=== PATIENT | male | born 1960 | race Caucasian/White ===

== ENCOUNTER 2017-05-04 09:53 | Inpatient (IN) ==
[2017-04-29 12:53] LABS: URINE MICRO REVIEW NEEDED? NO; URINE SOURCE CLEAN CATCH
[2017-04-29 12:53] LABS: MANUAL DIFF NEEDED? NO
--- NOTE | 2017-04-29 13:04 | EKG Report ---
Test Performed on : 04/29/2017 12:32:34 PM Test Reason : PAT JOINT CAMP Blood Pressure : / mmHG Vent. Rate : 057 BPM Atrial Rate : 057 BPM P-R Int : 176 ms QRS Dur : 086 ms QT Int : 392 ms P-R-T Axes : 034 054 032 degrees QTc Int : 381 ms Sinus bradycardia. Septal infarct , age undetermined Abnormal ECG No previous ECGs available Confirmed by Cristobal ALCALA, Christos Navarro ([id number]) on 05/01/2017 9:12:56 AM
[2017-04-29 13:32] LABS: BASO% 0.3 % (0.0-0.8); EOS# 0.33 X1000 (0.0-0.7); EOS% 3.5 % (0.0-10.0); HEMATOCRIT 47.8 % (42.0-52.0); HEMOGLOBIN 16.7 g/dL (14.0-18.0); IMM GRAN# 0.04 X1000 (0.0-0.04); IMM GRAN% 0.4 % (0.0-0.5); LYMPH# 2.43 X1000 (1.2-3.4); MCH 30.1 PG (27-31); MCHC 34.9 g/dL (33-37); MCV 86.3 FL (81-99); MONO# 0.56 X1000 (0.11-0.59); NEUT% 63.8 % (42.2-75.2); PLT 306 X1000 (130-400); RBC 5.54 XMIL (4.7-6.1)
[2017-04-29 13:33] LABS: BILIRUBIN URINE NEGATIVE (NEGATIVE); BLOOD URINE NEGATIVE (NEGATIVE); COLOR YELLOW; GLUCOSE URINE NEGATIVE (NEGATIVE); LEUKOCYTES URINE NEGATIVE (NEGATIVE); NITRITE URINE NEGATIVE (NEGATIVE); PROTEIN URINE NEGATIVE (NEGATIVE); SP GRAVITY URINE 1.017; TURBIDITY URINE CLEAR (CLEAR); UROBILINOGEN URINE NORMAL (NORMAL)
[2017-04-29 13:37] LABS: UR EPITHELIAL CELLS <10 /HPF (<10); URINE BACTERIA NEGATIVE /HPF; URINE RBC <10 /HPF (<10); URINE WBC <10 /HPF (<10)
[2017-04-29 13:45] LABS: INR 1.02; PROTIME 10.7 Seconds (9.2-11.7); PTT 26.5 Seconds (22.0-36.0)
[2017-04-29 14:04] LABS: AGAP 11; BUN 16 mg/dL (8-22); CALCIUM 9.4 mg/dL (8.8-10.2); CHLORIDE 98 mmol/L (98-107); COSMO 277; POTASSIUM 4.1 mmol/L (3.5-5.1); SODIUM 138 mmol/L (136-145); TCO2 29 mmol/L (25-35)
[2017-05-04] MEDS ORDERED: COLACE ONE (10:09)
[2017-05-04] MEDS ORDERED: LYRICA ONE ×2 (10:09→10:38)
[2017-05-04] MEDS ORDERED: REGLAN ONE (10:09)
[2017-05-04] MEDS ORDERED: CELEBREX ONE (10:09)
[2017-05-04] MEDS ORDERED: PEPCID ONE (10:09)
[2017-05-04] MEDS ORDERED: LR 1,000 ML ONE ×2 (10:09→14:46)
[2017-05-04] MEDS ORDERED: KEFZOL 2 GM/D5W 2 GM/50 ML IVPB ONE (10:10)
[2017-05-04] MEDS ORDERED: TORADOL ONE (12:07)
[2017-05-04] MEDS ORDERED: MARCAINE 0.25% PF/EPI 1:200,000 ONE (12:07)
[2017-05-04] MEDS ORDERED: NEOSPORIN G.U. IRRIGANT ONE (12:08)
[2017-05-04] MEDS ORDERED: EXPAREL 1.3% ONE (12:08)
[2017-05-04] MEDS ORDERED: CYKLOKAPRON 1,000 MG/NS 1,000 MG/100 ML IVPB ONE ×2 (12:08→12:09)
[2017-05-04] MEDS ORDERED: SODIUM CHLORIDE 0.9% ONE (12:08)
[2017-05-04] MEDS ORDERED: VANCOMYCIN ONE (12:09)
[2017-05-04 13:14] LABS: URINE MICRO REVIEW NEEDED? NO; URINE SOURCE CATH
[2017-05-04 13:20] LABS: BILIRUBIN URINE NEGATIVE (NEGATIVE); BLOOD URINE NEGATIVE (NEGATIVE); COLOR YELLOW; GLUCOSE URINE NEGATIVE (NEGATIVE); LEUKOCYTES URINE NEGATIVE (NEGATIVE); NITRITE URINE NEGATIVE (NEGATIVE); PROTEIN URINE NEGATIVE (NEGATIVE); SP GRAVITY URINE 1.016; TURBIDITY URINE CLEAR (CLEAR); UROBILINOGEN URINE NORMAL (NORMAL)
[2017-05-04 13:22] LABS: UR EPITHELIAL CELLS <10 /HPF (<10); URINE BACTERIA NEGATIVE /HPF; URINE RBC <10 /HPF (<10); URINE WBC <10 /HPF (<10)
[2017-05-04] MEDS ORDERED: NS 1,000 ML ONE (14:32)
[2017-05-04] MEDS ORDERED: VERSED ONE (14:42)
[2017-05-04] MEDS ORDERED: FENTANYL ONE (14:42)
[2017-05-04] MEDS ORDERED: DIPRIVAN 1% 1,000 MG/100 ML BOTTLE ONE (14:43)
[2017-05-04] MEDS ORDERED: ZOFRAN ONE (14:46)
[2017-05-04] MEDS ORDERED: DECADRON ONE (14:46)
[2017-05-04] MEDS ORDERED: OFIRMEV 1000 MG/ISOTONIC SOLN 1,000 MG/100 ML BOTTLE ONE (14:46)
[2017-05-04] MEDS: NS 1,000 ML IV SCH (16:00)
[2017-05-04] MEDS ORDERED: MORPHINE IV PRN (16:30)
[2017-05-04] MEDS ORDERED: AMBIEN PO PRN (16:30)
[2017-05-04] MEDS ORDERED: MILK OF MAGNESIA PO PRN (16:30)
[2017-05-04] MEDS ORDERED: ZOFRAN IV PRN (16:30)
[2017-05-04] MEDS: TYLENOL PO SCH ×2 (17:58→23:40)
[2017-05-04] MEDS: ULTRAM PO SCH ×2 (17:58→23:40)
[2017-05-04] MEDS: OXY IR PO PRN ×2 (17:59→21:29)
--- NOTE | 2017-05-04 20:52 | OPERATIVE NOTE ---
PROCEDURE DATE: 05/04/2017 PREOPERATIVE DIAGNOSIS: Left knee degenerative joint disease. POSTOP DIAGNOSIS: Left knee degenerative joint disease. PROCEDURE PERFORMED: Left total knee arthroplasty using [employer] size 9 femoral component, size 8 tibial component, a 16 mm articular insert, and a 38 mm patellar component. ANESTHESIA: Spinal. SURGEON: Michael Prieto MD. GRAIN ELEVATOR WORKER: Michael. COMPLICATIONS: None. BLOOD LOSS: Minimal. TOURNIQUET TIME: Approximately hour and a half. DESCRIPTION OF PROCEDURE: The patient brought to operative suite and placed in supine position. After satisfactory administration of spinal anesthesia, a well-padded tourniquet was placed on left proximal thigh. The left lower extremity was prepped and draped in usual sterile fashion. Leg was exsanguinated. Tourniquet insufflated to 350 torr. A longitudinal made beginning superior pole of patella and extended distally tibia tuberosity, dissected sharply through skin. Full-thickness skin flaps were elevated medially and laterally. A medial arthrotomy made vastus snip. The medial capsule was elevated off the medial tibial plateau. The prepatellar fat pad, ACL, PCL, medial meniscus, lateral meniscus were excised. A drill was entered in the center of distal femur, intramedullary guide was placed, the distal cutting block pinned in place and cut made with oscillating saw. Femur was sized to a size 9, a size 9 cutting block was pinned in place. Anterior cuts, chamfer cuts and posterior condylar cuts were made with oscillating saw. Marginal osteophytes removed with rongeur. A box cutting block was pinned in place, box cut was made with box osteotome and oscillating saw, posterior condyle osteophytes removed with curved osteotome and rongeur. Attention was then directed tibia. A drill was entered in the center of the tibia. An intramedullary guide was placed. The line was checked with drop gustabo referencing off the anterior cortex tibia and the second ray of the foot and taking 4 mm off the low side tibia which in this case was medially. The articular surface tibial plateau was then removed with oscillating saw. Flexion-extension gaps were checked and balanced at 16 mm. He was slightly loose laterally due to his severe varus deformity. The tibia sized to size 8, a size 8 guide was used for the fin punch. The tibial trial, femoral trial and articular insert were placed, taken through range of motion found to have excellent alignment with balancing, range of motion. Attention then directed to patella, 9 mm of the articular surface patella removed with oscillating saw. Patella sized to a size 38. A size 38 guide was used drill peg holes, offset was chamfered 30-45 degrees and patellar trial was placed, taken through range of motion found to have excellent patella tracking. All trials were then removed. Knee was copiously irrigated and dried being certain all bone debris removed. The tibial component, femoral component, patellar component were cemented in place excess cement being removed with a [place]. Once the cement had hardened excess cement was again removed with an osteotome. Knee was again copiously irrigated and dried being certain all bone and cement were removed. The trial articular insert was removed, knee was copiously infiltrated with Exparel including the posterior capsule, anterior capsule, medial and lateral collateral ligaments, anterior musculature, subcutaneous tissue. The definitive articular insert was locked into place, knee was again taken through range of motion again found to have excellent alignment, balancing, range of motion, patella tracking. Then a drain was placed exiting superior laterally and buried in lateral gutter. The medial arthrotomy was closed with 0 Vicryl. Skin edge approximated 2-0 Vicryl. Skin was closed with Prineo and a sterile dressing was applied. The patient tolerated the procedure well without complication. At the end the procedure all counts correct x2. The patient transferred to the recovery room in stable condition. cc: Michael Prieto MD MTDD
[2017-05-04] MEDS: LYRICA PO SCH (21:27)
[2017-05-04] MEDS: CELEBREX PO SCH (21:27)
[2017-05-04] MEDS: PERIDEX MT SCH (21:27)
[2017-05-04] MEDS: KEFZOL 2 GM/D5W 2 GM/50 ML IVPB IV SCH (21:28)
[2017-05-04] MEDS: COLACE PO SCH (21:29)
[2017-05-05] MEDS: TYLENOL PO SCH ×3 (04:07→11:37)
[2017-05-05] MEDS: KEFZOL 2 GM/D5W 2 GM/50 ML IVPB IV SCH (04:07)
[2017-05-05] MEDS: NS 1,000 ML IV SCH ×2 (04:07→06:57)
[2017-05-05] MEDS: ULTRAM PO SCH ×2 (04:08→11:38)
[2017-05-05] MEDS ORDERED: XARELTO PO SCH (06:00)
[2017-05-05 06:08] LABS: HEMATOCRIT 38.7 % (42.0-52.0); HEMOGLOBIN 13.4 g/dL (14.0-18.0)
[2017-05-05 06:17] LABS: AGAP 14; BUN 14 mg/dL (8-22); CALCIUM 8.4 mg/dL (8.8-10.2); CHLORIDE 98 mmol/L (98-107); COSMO 276; POTASSIUM 4.4 mmol/L (3.5-5.1); SODIUM 136 mmol/L (136-145); TCO2 24 mmol/L (25-35)
[2017-05-05] MEDS: OXY IR PO PRN ×3 (06:17→15:19)
[2017-05-05 07:31] VITALS: BP 138/76
[2017-05-05] MEDS: CELEBREX PO SCH (08:54)
[2017-05-05] MEDS: LYRICA PO SCH (08:54)
[2017-05-05] MEDS: PERIDEX MT SCH (08:55)
[2017-05-05] MEDS: COLACE PO SCH (08:55)
[2017-05-05] MEDS ORDERED: DECADRON IV ONE (09:00)
[2017-05-05] MEDS ORDERED: PEPCID PO SCH (09:00)
[2017-05-05] MEDS ORDERED: COZAAR PO SCH (09:00)
--- NOTE | 2017-05-05 20:47 | DISCHARGE SUMMARY ---
ADMISSION DATE: 05/04/2017 DISCHARGE DATE: 05/05/2017 DISCHARGE DIAGNOSIS: Left knee degenerative joint disease status post left total knee arthroplasty. DISCHARGE MEDICATIONS: See discharge medication list. DISPOSITION: The patient is discharged home with home health. DISCHARGE INSTRUCTIONS: Instructions for total knee arthroplasty protocol, instructed to return to see Dr. Prieto next . HOSPITAL COURSE: On the day of admission the patient underwent a left total knee arthroplasty. His postoperative course was unremarkable. At discharge he is afebrile and tolerating a regular diet. His wound is clean, dry, intact without sign of infection. His hemoglobin is 13.4 and his hematocrit is 38.7. He had 300 mL of drainage from his Hemovac. He did not ambulate with physical therapy yesterday. We are instructing him to work with physical therapy this morning before being discharged home. He is discharged home in stable condition with instructions to follow up as described above. Dictated by JOANNE Law for Michael Prieto MD cc: JOANNE Law MD
[2017-05-05] MEDS ORDERED: PRAVACHOL PO SCH (21:00)
== END 2017-05-05 15:43 | disposition home health service (06) ==
LOC: SURHOLD 09:53 → 4N 12:41
PROVIDERS: ADMIT Orthopaedic Surgery; ATTEND Orthopaedic Surgery